=== PATIENT | female | born 1940 | race Two or more races ===

== ENCOUNTER 2019-12-06 13:53 | Outpatient (CLI) | payer MEDICARE, MEDICAID ==
[2019-12-06 14:09] LABS: APPEARANCE,URINE CLEAR; COLOR,URINE BROWN; GLUCOSE, URINE (UA) NEGATIVE (NEGATIVE); KETONES,URINE NEGATIVE (NEGATIVE); LEUKOCYTE ESTERASE ,URINE 1+ (NEGATIVE); PH,URINE 6.5 (4.5-8.0); PROTEIN,URINE NEGATIVE (NEGATIVE)
[2019-12-06 14:28] LABS: BILIRUBIN, URINE NEGATIVE (NEGATIVE); NITRITE,URINE NEGATIVE (NEGATIVE); UROBILINOGEN,URINE NORMAL MG/DL (0.0-1.0)
== END 2019-12-06 15:53 | disposition home or self-care (01) ==
LOC: LAB 13:53
DX: N39.0 Urinary tract infection, site not specified (principal)
CPT/HCPCS: 81001; 87086